=== PATIENT | female | born 1980 | race African-American/Black ===

== ENCOUNTER 2019-11-23 22:15 | Inpatient (IN) | payer SELFPAY ==
[~2019-11-23] VITALS: Ht 157.5 cm; Wt 70.8 kg
[2019-11-23] MEDS ORDERED: LORAZEPAM 2MG/ML CPJ IV ONE (23:00)
[2019-11-23] MEDS ORDERED: CLONIDINE 0.2MG TABLET PO ONE (23:00)
[2019-11-23] MEDS ORDERED: ASPIRIN 81MG TABLET PO ONE (23:00)
[2019-11-23] MEDS ORDERED: SODIUM CHLORIDE 0.9% 1,000 ML IV ONE (23:00)
[2019-11-23 23:30] LABS: BASOPHILS % 0.5 % (0.0-2.0); EOSINOPHILS % 0.1 % (0.0-5.0); HEMATOCRIT. 30.2 % (36.0-48.0); HEMOGLOBIN. 9.8 g/dL (12.0-16.0); LYMPHOCYTES % 9.9 % (20.0-50.0); MEAN CORPUSCULAR HEMOGLOBIN 27.2 pg (28.0-32.0); MEAN PLATELET VOLUME 7.5 fl (7.4-10.4); MONOCYTES % 4.3 % (2.0-8.0); NEUTROPHILS % 85.2 % (40.0-76.0); PLATELET 161 x1000/uL (130-400); RED BLOOD CELL COUNT 3.59 mill/uL (4.2-5.4)
[2019-11-23 23:32] LABS: CHLORIDE 99 mEq/L (98-107)
[2019-11-23 23:35] LABS: PARTIAL THROMBOPLASTIN TIME 26.2 sec (23.4-31.0); PROTHROMBIN TIME 10.9 sec (9.6-11.0)
[2019-11-23 23:38] LABS: HCG SCREEN NEGATIVE
[2019-11-23 23:40] LABS: ETHANOL BLOOD < 10 mg/dL
[2019-11-23] MEDS ORDERED: AZITHROMYCIN 500 MG in DEXT 5% WATER 250 ML IV ONE (23:45)
[2019-11-23] MEDS ORDERED: CEFTRIAXONE 1 G PREMIX 50 ML IV ONE (23:45)
[2019-11-24] VITALS (15 sets, daily range): BP systolic 132–258; BP diastolic 49–145
[2019-11-24] MEDS ORDERED: POTASSIUM CHLORIDE 20MEQ TABLET SR PO ONE (00:30)
[2019-11-24] MEDS ORDERED: NITROGLYCERIN 50MG PREMIX 250 ML IV ONE (00:30)
[2019-11-24 02:00] LABS: CLARITY URINE CLEAR (CLEAR); COLOR URINE YELLOW (YELLOW); KETONES URINE NEGATIVE (NEGATIVE); LEUKOCYTE ESTERASE URINE NEGATIVE (NEGATIVE); NITRITE URINE NEGATIVE (NEGATIVE); OCCULT BLOOD URINE 2+ (NEGATIVE); PROTEIN URINE 3+ (NEGATIVE); SPECIFIC GRAVITY URINE 1.016 (1.005-1.030); UROBILINOGEN URINE 0.2 E.U./dL (0.2-1.0)
[2019-11-24 02:17] LABS: *AMPHETAMINES SCREEN URINE NEGATIVE (NEGATIVE); *BARBITURATES SCREEN URINE NEGATIVE (NEGATIVE); *BENZODIAZEPINES SCREEN URINE NEGATIVE (NEGATIVE); *COCAINE SCREEN URINE NEGATIVE (NEGATIVE)
[2019-11-24 02:18] LABS: CANNABINOID URINE SCREEN NEGATIVE (NEGATIVE); METHADONE URINE SCREEN NEGATIVE (NEGATIVE); PHENCYCLIDINE URINE SCREEN NEGATIVE (NEGATIVE)
[2019-11-24 02:24] LABS: OPIATES URINE SCREEN NEGATIVE (NEGATIVE)
[2019-11-24] MEDS ORDERED: NITROPRUSSIDE 50 MG in SODIUM CHLORIDE 0.9% 248 ML IV STA ×2 (06:19→08:53)
[2019-11-24] MEDS ORDERED: NITROPRUSSIDE 50 MG in SODIUM CHLORIDE 0.9% 248 ML IV ONE (18:00)
[2019-11-24] MEDS ORDERED: ACETAMINOPHEN 325MG TABLET PO PRN (22:00)
[2019-11-24] MEDS ORDERED: HYDROCODONE/ACETAMINOPHEN 5/325MG TABLET PO PRN (22:00)
[2019-11-24] MEDS ORDERED: ONDANSETRON HCL 4MG/2ML INJ IV PRN (22:00)
[2019-11-24] MEDS ORDERED: FUROSEMIDE 40MG/4ML VIAL IV SCH (22:00)
[2019-11-24] MEDS ORDERED: IPRATROPIUM/ALBUTEROL 0.5-3(2.5)MG/3ML NEB NEB PRN (22:00)
[2019-11-24] MEDS: NIFEDIPINE XL 60MG TAB PO SCH (22:57)
[2019-11-24] MEDS ORDERED: DEXTROSE 50% WATER 50ML SYRINGE IV PRN (23:15)
[2019-11-24] MEDS: CLONIDINE 0.1MG TABLET PO PRN (23:21)
[2019-11-24 23:50] LABS: CHLORIDE 105 mEq/L (98-107)
[2019-11-24 23:53] LABS: BASOPHILS % 0.9 % (0.0-2.0); HEMATOCRIT. 24.9 % (36.0-48.0); HEMOGLOBIN. 8.4 g/dL (12.0-16.0); LYMPHOCYTES % 15.9 % (20.0-50.0); MEAN CORPUSCULAR HEMOGLOBIN 28.1 pg (28.0-32.0); MEAN CORPUSCULAR VOLUME 83.4 fL (81.0-99.0); MEAN PLATELET VOLUME 7.9 fl (7.4-10.4); MONOCYTES % 5.8 % (2.0-8.0); NEUTROPHILS % 77.4 % (40.0-76.0); PLATELET 139 x1000/uL (130-400); RED BLOOD CELL COUNT 2.99 mill/uL (4.2-5.4)
[2019-11-24 23:59] LABS: CREATINE KINASE 589 IU/L (26-192)
[2019-11-25] VITALS (49 sets, daily range): BP systolic 93–236; BP diastolic 25–162
[2019-11-25 00:02] LABS: CREATINE KINASE MB FRACTION 9.3 ng/mL (0.5-3.6)
[2019-11-25] MEDS: BLOOD SUGAR DIAGNOSTIC STRIP TEST SCH ×5 (00:02→20:27)
[2019-11-25] MEDS: INSULIN LISPRO 100 UNITS/ML SUBCUT SCH ×6 (00:03→20:43)
[2019-11-25] MEDS: CEFTRIAXONE 1,000 MG in DEXTROSE 5% WATER 50 ML IV SCH ×2 (00:11→23:56)
[2019-11-25] MEDS: AZITHROMYCIN 500 MG in DEXT 5% WATER 250 ML IV SCH (00:46)
[2019-11-25] MEDS ORDERED: HYDRALAZINE HCL 10MG TABLET PO PRN (02:00)
[2019-11-25] MEDS ORDERED: POTASSIUM CHLORIDE 20MEQ TABLET SR PO SCH (05:00)
[2019-11-25 05:07] LABS: BASOPHILS % 0.6 % (0.0-2.0); EOSINOPHILS % 0.1 % (0.0-5.0); HEMATOCRIT. 24.6 % (36.0-48.0); HEMOGLOBIN. 8.2 g/dL (12.0-16.0); LYMPHOCYTES % 15.7 % (20.0-50.0); MEAN CORPUSCULAR HEMOGLOBIN 27.8 pg (28.0-32.0); MEAN CORPUSCULAR VOLUME 83.9 fL (81.0-99.0); MEAN PLATELET VOLUME 8.4 fl (7.4-10.4); MONOCYTES % 6.4 % (2.0-8.0); NEUTROPHILS % 77.2 % (40.0-76.0); PLATELET 124 x1000/uL (130-400); RED BLOOD CELL COUNT 2.93 mill/uL (4.2-5.4)
[2019-11-25 05:15] LABS: CHLORIDE 104 mEq/L (98-107)
[2019-11-25 05:27] LABS: CREATINE KINASE 622 IU/L (26-192); LDL CHOLESTEROL 103 mg/dL (5-100)
[2019-11-25 05:28] LABS: HDL CHOLESTEROL 44 mg/dL (40-59)
[2019-11-25 05:31] LABS: CREATINE KINASE MB FRACTION 8.6 ng/mL (0.5-3.6)
[2019-11-25] MEDS: NIFEDIPINE XL 60MG TAB PO SCH (10:14)
[2019-11-25] MEDS ORDERED: POTASSIUM CHLORIDE 10MEQ TABLET SR PO NR (12:00)
[2019-11-25] MEDS: HYDRALAZINE HCL 25MG TABLET PO SCH ×2 (13:00→21:33)
[2019-11-25] MEDS: ISOSORBIDE DINITRATE 10MG TABLET PO SCH ×2 (14:27→20:31)
[2019-11-25] MEDS: ATORVASTATIN CALCIUM 10MG TABLET PO SCH (20:29)
[2019-11-25] MEDS ORDERED: CARVEDILOL 3.125 MG TABLET PO SCH (21:00)
[2019-11-26] VITALS (15 sets, daily range): BP systolic 115–173; BP diastolic 58–94
[2019-11-26] MEDS: AZITHROMYCIN 500 MG in DEXT 5% WATER 250 ML IV SCH (01:10)
[2019-11-26 06:19] LABS: PHOSPHORUS 4.3 mg/dL (2.5-4.9)
[2019-11-26] MEDS: INSULIN LISPRO 100 UNITS/ML SUBCUT SCH ×4 (06:29→21:00)
[2019-11-26] MEDS: BLOOD SUGAR DIAGNOSTIC STRIP TEST SCH ×4 (06:29→21:00)
[2019-11-26] MEDS: HYDRALAZINE HCL 25MG TABLET PO SCH ×3 (06:30→22:15)
[2019-11-26 07:29] LABS: BASOPHILS % 0.9 % (0.0-2.0); EOSINOPHILS % 1.8 % (0.0-5.0); HEMATOCRIT. 22.9 % (36.0-48.0); HEMOGLOBIN. 7.7 g/dL (12.0-16.0); LYMPHOCYTES % 30.5 % (20.0-50.0); MEAN CORPUSCULAR HEMOGLOBIN 28.4 pg (28.0-32.0); MEAN CORPUSCULAR VOLUME 84.1 fL (81.0-99.0); MEAN PLATELET VOLUME 9.1 fl (7.4-10.4); MONOCYTES % 7.3 % (2.0-8.0); NEUTROPHILS % 59.5 % (40.0-76.0); PLATELET 159 x1000/uL (130-400); RED BLOOD CELL COUNT 2.73 mill/uL (4.2-5.4); RED CELL DISTRIBUTION WIDTH 15.1 % (11.6-14.6)
[2019-11-26] MEDS: AMLODIPINE 10MG TABLET PO SCH (09:22)
[2019-11-26] MEDS: CARVEDILOL 6.25 MG TABLET PO SCH ×2 (09:23→21:00)
[2019-11-26] MEDS: ISOSORBIDE MONONITRATE 30MG TABLET SR 24HR PO SCH (09:23)
[2019-11-26] MEDS ORDERED: POTASSIUM CHLORIDE 20MEQ/PACKET PO NR (10:00)
[2019-11-26] MEDS: IRON SUCROSE COMPLEX 100 MG/5 ML ML IV SCH (12:18)
[2019-11-26] MEDS: CLONIDINE 0.1MG TABLET PO PRN (12:20)
[2019-11-26 13:00] LABS: PHOSPHORUS 4.3 mg/dL (2.5-4.9)
[2019-11-26] MEDS ORDERED: INFLUENZA VACCINE 05/PF 0.5 ML VIAL IM ONE (14:00)
[2019-11-26] MEDS ORDERED: SODIUM BICARBONATE 4% (2.4MEQ) 5ML VIAL IV ONE (14:12)
[2019-11-26] MEDS ORDERED: HEPARIN 1000 UNITS/ML 10ML ONE (14:12)
[2019-11-26] MEDS ORDERED: LIDOCAINE HCL 1% 20ML VIAL (Pyxis) INJ ONE (14:13)
[2019-11-26] MEDS ORDERED: FENTANYL CITRATE/PF 50MCG/ML 2ML VIAL ONE (14:25)
[2019-11-26] MEDS ORDERED: FENTANYL CITRATE/PF 50MCG/ML 2ML VIAL IV ONE (14:45)
[2019-11-26] MEDS ORDERED: PNEUMOCOCCAL 23-VAL P-SAC VAC 0.5 ML IM ONE (18:00)
[2019-11-26] MEDS: ATORVASTATIN CALCIUM 10MG TABLET PO SCH (22:15)
[2019-11-27] VITALS: BP_SYST 144; BP_SYST 172; BP_DIAS 68; BP_DIAS 84
[2019-11-27] MEDS: CLONIDINE 0.1MG TABLET PO PRN ×2 (03:57→22:05)
[2019-11-27 04:00] VITALS: BP 186/94
[2019-11-27] MEDS: HYDRALAZINE HCL 25MG TABLET PO SCH (05:56)
[2019-11-27] MEDS: BLOOD SUGAR DIAGNOSTIC STRIP TEST SCH ×4 (05:57→22:03)
[2019-11-27] MEDS: INSULIN LISPRO 100 UNITS/ML SUBCUT SCH ×4 (06:25→22:03)
[2019-11-27 07:16] LABS: BASOPHILS % 0.8 % (0.0-2.0); EOSINOPHILS % 0.4 % (0.0-5.0); HEMATOCRIT. 21.4 % (36.0-48.0); LYMPHOCYTES % 20.9 % (20.0-50.0); MEAN CORPUSCULAR HEMOGLOBIN 27.7 pg (28.0-32.0); MEAN PLATELET VOLUME 8.5 fl (7.4-10.4); MONOCYTES % 8.4 % (2.0-8.0); NEUTROPHILS % 69.5 % (40.0-76.0); PLATELET 148 x1000/uL (130-400); RED BLOOD CELL COUNT 2.51 mill/uL (4.2-5.4); RED CELL DISTRIBUTION WIDTH 15.2 % (11.6-14.6)
[2019-11-27 07:22] LABS: HEPATITIS B SURFACE ANTIGEN NEGATIVE
[2019-11-27 08:00] VITALS: BP 155/78
[2019-11-27] MEDS: ISOSORBIDE MONONITRATE 30MG TABLET SR 24HR PO SCH (09:14)
[2019-11-27] MEDS: AMLODIPINE 10MG TABLET PO SCH (09:15)
[2019-11-27] MEDS: IRON SUCROSE COMPLEX 100 MG/5 ML ML IV SCH (09:15)
[2019-11-27] MEDS: CARVEDILOL 6.25 MG TABLET PO SCH (09:15)
[2019-11-27 12:00] VITALS: BP 138/77
[2019-11-27] MEDS: HYDRALAZINE HCL 50MG TABLET PO SCH ×2 (13:02→22:04)
[2019-11-27 16:00] VITALS: BP 152/69
[2019-11-27 16:14] LABS: HEMATOCRIT 21.8 % (36.0-48.0); HEMOGLOBIN 7.1 g/dL (12.0-16.0); MEAN CORPUSCULAR HEMOGLOBIN 27.9 pg (28.0-32.0); MEAN CORPUSCULAR VOLUME 85.4 fL (81.0-99.0); PLATELET 159 x1000/uL (130-400); RED BLOOD CELL COUNT 2.56 mill/uL (4.2-5.4); RED CELL DISTRIBUTION WIDTH 15.3 % (11.6-14.6)
[2019-11-27 20:00] VITALS: BP 176/92
[2019-11-27] MEDS: CARVEDILOL 12.5MG TABLET PO SCH (22:04)
[2019-11-27] MEDS: ATORVASTATIN CALCIUM 10MG TABLET PO SCH (22:04)
[2019-11-28] VITALS: BP 132/66
[2019-11-28 04:00] VITALS: BP 161/75
[2019-11-28] MEDS: HYDRALAZINE HCL 50MG TABLET PO SCH ×3 (05:29→21:10)
[2019-11-28] MEDS: BLOOD SUGAR DIAGNOSTIC STRIP TEST SCH ×4 (05:30→20:53)
[2019-11-28 06:27] LABS: BASOPHILS % 1.2 % (0.0-2.0); EOSINOPHILS % 1.2 % (0.0-5.0); HEMATOCRIT. 24.7 % (36.0-48.0); LYMPHOCYTES % 28.2 % (20.0-50.0); MEAN CORPUSCULAR HEMOGLOBIN 27.7 pg (28.0-32.0); MEAN CORPUSCULAR VOLUME 85.5 fL (81.0-99.0); MEAN PLATELET VOLUME 9.3 fl (7.4-10.4); MONOCYTES % 7.4 % (2.0-8.0); PLATELET 182 x1000/uL (130-400); RED BLOOD CELL COUNT 2.89 mill/uL (4.2-5.4); RED CELL DISTRIBUTION WIDTH 15.2 % (11.6-14.6)
[2019-11-28] MEDS: INSULIN LISPRO 100 UNITS/ML SUBCUT SCH ×4 (07:15→20:53)
[2019-11-28 08:00] VITALS: BP 173/88
[2019-11-28] MEDS: AMLODIPINE 10MG TABLET PO SCH (09:00)
[2019-11-28] MEDS: ISOSORBIDE MONONITRATE 30MG TABLET SR 24HR PO SCH (09:00)
[2019-11-28] MEDS: CARVEDILOL 12.5MG TABLET PO SCH ×2 (09:00→21:05)
[2019-11-28 12:00] VITALS: BP 158/59
[2019-11-28] MEDS ORDERED: IRON SUCROSE COMPLEX 100 MG/5 ML ML IV SCH (12:00)
[2019-11-28] MEDS: IRON SUCROSE COMPLEX 100 MG/5 ML ML IV SCH (13:13)
[2019-11-28 16:00] VITALS: BP 123/90
[2019-11-28 20:00] VITALS: BP 164/79
[2019-11-28] MEDS: ATORVASTATIN CALCIUM 10MG TABLET PO SCH (21:05)
[2019-11-29] VITALS: BP 143/63
[2019-11-29 04:00] VITALS: BP 134/68
[2019-11-29] MEDS: HYDRALAZINE HCL 50MG TABLET PO SCH ×2 (05:31→14:49)
[2019-11-29] MEDS: BLOOD SUGAR DIAGNOSTIC STRIP TEST SCH ×2 (06:45→11:45)
[2019-11-29] MEDS: INSULIN LISPRO 100 UNITS/ML SUBCUT SCH ×2 (07:15→13:07)
[2019-11-29 08:00] VITALS: BP 196/92
[2019-11-29 08:07] LABS: HIV SCREEN 4G Non Reactive (Non Reactive)
[2019-11-29] MEDS: ISOSORBIDE MONONITRATE 30MG TABLET SR 24HR PO SCH (10:06)
[2019-11-29] MEDS: AMLODIPINE 10MG TABLET PO SCH (10:07)
[2019-11-29] MEDS: CARVEDILOL 12.5MG TABLET PO SCH (10:07)
[2019-11-29 12:00] VITALS: BP 146/77
[2019-11-29] MEDS ORDERED: ATOR10TA PO (12:27)
[2019-11-29] MEDS ORDERED: AMLO10TA80 PO (12:27)
[2019-11-29] MEDS ORDERED: COR12 PO (12:27)
[2019-11-29] MEDS ORDERED: HYDR-4135 PO (12:27)
[2019-11-29] MEDS ORDERED: ISOS30TA6 PO (12:27)
[2019-11-29] MEDS ORDERED: METF-815 MT (12:27)
[2019-11-29 14:40] VITALS: BP 146/77
[2019-11-29] MEDS ORDERED: CARVEDILOL 12.5MG TABLET PO SCH (21:00)
== END 2019-11-29 16:33 | disposition home or self-care (01) | DRG 469 ==
LOC: ER 22:15 → MICUSO 11-24 01:01 → EDBEDREQTM 11-24 01:07 → EDBEDREQ 11-24 01:07 → EDBEDREQDT 11-24 01:07 → ENRESERV 11-24 01:56 → CANRESERV 11-24 01:56 → EDBEDREQSVC 11-24 02:45 → EDBEDREQTM 11-24 02:45 → ENRESERV 11-24 19:31 → ER 11-24 20:35 → 5WST 11-25 11:53
PROVIDERS: ADMIT Internal Medicine; ATTEND Internal Medicine
PROC: 0JH63XZ Insertion of Tunneled Vascular Access Device into Chest Subcutaneous Tissue and Fascia, Percutaneous Approach (ICD-10-PCS; principal; 2019-11-25)
PROC: 05HM33Z Insertion of Infusion Device into Right Internal Jugular Vein, Percutaneous Approach (ICD-10-PCS; 2019-11-25)
PROC: B5131ZA Fluoroscopy of Right Jugular Veins using Low Osmolar Contrast, Guidance (ICD-10-PCS; 2019-11-25)
PROC: B54MZZA Ultrasonography of Right Upper Extremity Veins, Guidance (ICD-10-PCS; 2019-11-25)
PROC: 5A1D70Z Performance of Urinary Filtration, Intermittent, Less than 6 Hours Per Day (ICD-10-PCS; 2019-11-26)
PROC: 5A1D70Z Performance of Urinary Filtration, Intermittent, Less than 6 Hours Per Day (ICD-10-PCS; 2019-11-27)
DX: N17.9 Acute kidney failure, unspecified (principal); I16.1 Hypertensive emergency; I13.2 Hypertensive heart and chronic kidney disease with heart failure and with stage 5 chronic kidney disease, or end stage renal disease; D63.1 Anemia in chronic kidney disease; E11.22 Type 2 diabetes mellitus with diabetic chronic kidney disease; E11.65 Type 2 diabetes mellitus with hyperglycemia; E43 Unspecified severe protein-calorie malnutrition; E78.5 Hyperlipidemia, unspecified; E87.2 Acidosis; E87.6 Hypokalemia; I21.A1 Myocardial infarction type 2; I27.20 Pulmonary hypertension, unspecified; I31.3 Pericardial effusion (noninflammatory); I50.33 Acute on chronic diastolic (congestive) heart failure; M62.82 Rhabdomyolysis; N18.6 End stage renal disease; N39.0 Urinary tract infection, site not specified; R65.21 Severe sepsis with septic shock; Z20.828 Contact with and (suspected) exposure to other viral communicable diseases; Z79.84 Long term (current) use of oral hypoglycemic drugs; Z82.49 Family history of ischemic heart disease and other diseases of the circulatory system; Z87.891 Personal history of nicotine dependence; Z91.14 Patient's other noncompliance with medication regimen; Z79.899 Other long term (current) drug therapy
CPT/HCPCS: 36415; 36558; 71045; 76770; 76937; 77001; 80048; 80053; 80061; 80305; 80320; 81003; 82306; 82550; 82553; 82570; 82728; 82962; 83036; 83540; 83550; 83605; 83735; 83880; 83970; 84100; 84145; 84156; 84300; 84443; 84484; 84703; 85025; 85027; 85044; 86803; 87340; 87389; 90686; 90732; 93005; 93306; 93970; 99152; 99153; 99291; J0456; J0696; J1644; J1815; J1940; J2060; J3010; J3490; J7030; J7050; J7060; C9803-CS; G0480; G0500; U0003-CS

== ENCOUNTER 2020-03-25 08:19 | Emergency (ER) | payer MEDICAID ==
[2020-03-25] VITALS (16 sets, daily range): BP systolic 128–158; BP diastolic 70–86
[~2020-03-25] VITALS: Ht 157.5 cm; Wt 69.0 kg
[~2020-03-25 08:19] MED LIST: AMLO10TA80 PO; ATOR10TA PO; COR12 PO; HYDR-4135 PO; ISOS30TA6 PO; METF-873 MT
[2020-03-25 09:41] LABS: EOSINOPHILS % 1.2 % (0.0-5.0); HEMATOCRIT. 27.8 % (36.0-48.0); HEMOGLOBIN. 9.1 g/dL (12.0-16.0); LYMPHOCYTES % 26.6 % (20.0-50.0); MEAN CORPUSCULAR VOLUME 94.3 fL (81.0-99.0); MEAN PLATELET VOLUME 7.9 fl (7.4-10.4); NEUTROPHILS % 64.2 % (40.0-76.0); PLATELET 225 x1000/uL (130-400); RED BLOOD CELL COUNT 2.95 mill/uL (4.2-5.4); RED CELL DISTRIBUTION WIDTH 15.6 % (11.6-14.6)
[2020-03-25 09:49] LABS: CHLORIDE 112 mEq/L (98-107)
[2020-03-25 09:52] LABS: INR 0.9
[2020-03-25] MEDS ORDERED: CEFAZOLIN 1000MG PREMIX 50 ML IV SCH (10:15)
[2020-03-25] MEDS ORDERED: LIDOCAINE HCL 1% 20ML VIAL (Pyxis) INJ ONE (10:46)
[2020-03-25] MEDS ORDERED: SODIUM BICARBONATE 4% (2.4MEQ) 5ML VIAL IV ONE (10:46)
[2020-03-25] MEDS ORDERED: CEFAZOLIN 1000MG PREMIX 50 ML IV ONE (10:51)
[2020-03-25] MEDS ORDERED: FENTANYL CITRATE/PF 50MCG/ML 2ML VIAL ONE (10:52)
== END 2020-03-25 11:58 | disposition home or self-care (01) ==
LOC: ER 08:19
DX: T82.49XA Other complication of vascular dialysis catheter, initial encounter (principal); N18.9 Chronic kidney disease, unspecified; I11.0 Hypertensive heart disease with heart failure; I50.9 Heart failure, unspecified; Z20.822 Contact with and (suspected) exposure to COVID-19; Z79.899 Other long term (current) drug therapy
CPT/HCPCS: 36415; 36581; 71045; 77001; 80053; 85025; 85610; 87426; 93005; 96365; 99285; C1750; C1769; J0690; J1642; J3010; J3490; Z7610; 99152; 99153; G0500

== ENCOUNTER 2020-11-26 13:38 | Inpatient (IN) | payer MEDICAID, OTHER ==
[~2020-11-26] VITALS: Ht 157.5 cm; Wt 76.7 kg
[~2020-11-26 13:38] MED LIST changes: -ISOS30TA6 PO; +ISOS30TA91 PO
[2020-11-26 17:30] LABS: BASOPHILS % 1.3 % (0.0-2.0); EOSINOPHILS % 0.7 % (0.0-5.0); HEMOGLOBIN. 12.5 g/dL (12.0-16.0); LYMPHOCYTES % 34.2 % (20.0-50.0); MEAN CORPUSCULAR HEMOGLOBIN 29.9 pg (28.0-32.0); MEAN CORPUSCULAR VOLUME 91.1 fL (81.0-99.0); MEAN PLATELET VOLUME 8.6 fl (7.4-10.4); MONOCYTES % 6.8 % (2.0-8.0); PLATELET 185 x1000/uL (130-400); RED BLOOD CELL COUNT 4.17 mill/uL (4.2-5.4)
[2020-11-26 17:36] LABS: CHLORIDE 110 mEq/L (98-107)
[2020-11-26 17:38] LABS: PROTHROMBIN TIME 10.7 sec (9.6-11.0)
[2020-11-26 20:53] LABS: HEPATITIS B SURFACE ANTIGEN NEGATIVE
[2020-11-27] VITALS (25 sets, daily range): BP systolic 150–196; BP diastolic 83–104
[2020-11-27] MEDS ORDERED: HYDRALAZINE 20MG/ML VIAL IV PRN (04:15)
[2020-11-27] MEDS ORDERED: NIFE90TA60 PO (04:47)
[2020-11-27] MEDS ORDERED: CALC667C PO (04:47)
[2020-11-27] MEDS ORDERED: IOHEXOL-300 100 ML BOTTLE ONE (08:40)
[2020-11-27] MEDS ORDERED: LIDOCAINE HCL 1% 20ML VIAL (Pyxis) INJ ONE (08:40)
[2020-11-27] MEDS ORDERED: HEPARIN 1000 UNITS/ML 10ML ONE (08:40)
[2020-11-27] MEDS ORDERED: FENTANYL CITRATE/PF 50MCG/ML 2ML VIAL ONE (08:49)
[2020-11-27] MEDS ORDERED: ISOSORBIDE MONONITRATE 60MG TABLET SR 24HR PO SCH (09:00)
[2020-11-27] MEDS ORDERED: NIFEDIPINE XL 90MG TAB PO SCH (09:00)
[2020-11-27] MEDS ORDERED: FENTANYL CITRATE/PF 50MCG/ML 2ML VIAL IV ONE (09:15)
[2020-11-27] MEDS: CALCIUM ACETATE 667MG CAPSULE PO SCH ×3 (10:13→18:00)
[2020-11-27] MEDS: CARVEDILOL 12.5MG TABLET PO SCH ×2 (10:13→19:45)
[2020-11-27 11:26] LABS: BASOPHILS % 1.5 % (0.0-2.0); EOSINOPHILS % 0.7 % (0.0-5.0); HEMATOCRIT. 34.9 % (36.0-48.0); HEMOGLOBIN. 11.1 g/dL (12.0-16.0); LYMPHOCYTES % 31.4 % (20.0-50.0); MEAN CORPUSCULAR HEMOGLOBIN 29.2 pg (28.0-32.0); MEAN CORPUSCULAR VOLUME 92.1 fL (81.0-99.0); MEAN PLATELET VOLUME 8.5 fl (7.4-10.4); MONOCYTES % 7.6 % (2.0-8.0); NEUTROPHILS % 58.8 % (40.0-76.0); PLATELET 166 x1000/uL (130-400); RED BLOOD CELL COUNT 3.79 mill/uL (4.2-5.4); RED CELL DISTRIBUTION WIDTH 14.2 % (11.6-14.6)
[2020-11-27] MEDS ORDERED: ATORVASTATIN CALCIUM 10MG TABLET PO SCH (21:00)
== END 2020-11-27 20:48 | disposition home or self-care (01) | DRG 182 ==
LOC: ER 13:38 → 7EST 11-27 00:41 → ENRESERV 11-27 01:59
PROVIDERS: ADMIT Internal Medicine; ATTEND Internal Medicine
PROC: B51W1ZZ Fluoroscopy of Dialysis Shunt/Fistula using Low Osmolar Contrast (ICD-10-PCS; principal; 2020-11-27)
PROC: 057Y3DZ Dilation of Upper Vein with Intraluminal Device, Percutaneous Approach (ICD-10-PCS; 2020-11-27)
PROC: B31N1ZZ Fluoroscopy of Other Upper Arteries using Low Osmolar Contrast (ICD-10-PCS; 2020-11-27)
PROC: B5181ZZ Fluoroscopy of Superior Vena Cava using Low Osmolar Contrast (ICD-10-PCS; 2020-11-27)
PROC: 5A1D70Z Performance of Urinary Filtration, Intermittent, Less than 6 Hours Per Day (ICD-10-PCS; 2020-11-27)
DX: T82.41XA Breakdown (mechanical) of vascular dialysis catheter, initial encounter (principal); I13.2 Hypertensive heart and chronic kidney disease with heart failure and with stage 5 chronic kidney disease, or end stage renal disease; N18.6 End stage renal disease; E11.22 Type 2 diabetes mellitus with diabetic chronic kidney disease; E87.8 Other disorders of electrolyte and fluid balance, not elsewhere classified; Y84.1 Kidney dialysis as the cause of abnormal reaction of the patient, or of later complication, without mention of misadventure at the time of the procedure; Z20.822 Contact with and (suspected) exposure to COVID-19; E66.9 Obesity, unspecified; I50.9 Heart failure, unspecified; Z99.2 Dependence on renal dialysis; Y92.89 Other specified places as the place of occurrence of the external cause; Z79.84 Long term (current) use of oral hypoglycemic drugs; Z79.899 Other long term (current) drug therapy; Z71.3 Dietary counseling and surveillance; Z68.30 Body mass index [BMI] 30.0-30.9, adult
CPT/HCPCS: 36415; 36903; 80048; 80053; 85025; 86705; 86709; 86803; 87340; 87426; 93005; 93971; 99285; J0360; J1644; J3010; J3490; Q9967